=== PATIENT | male | born 1970 | race Caucasian/White ===

== ENCOUNTER → 2020-02-27 | Day surgery (SDC) | payer BC ==
[~2020-02-27] MED LIST: AMLO10TA4 PO; ASPI-889 PO; ATOR40TA59 PO; BUPIVACAINE-EPI 0.25%-1:200000 MPF 30 ML VIAL. ONE; FEXO60TA25 PO; INSU100C4 SQ; INSU100I30 SQ; IPRATRPIUM/ALBUTEROL 0.5/2.5MG 3 ML NEBU. NEB PRN; IV RINGERS SOLUTION,LACTATED 1,000 ML IV SCH; METO25TA4 PO; MIDAZOLAM HCL PF 2 MG/2 ML VIAL. IV ONE; MULT-245 PO; OLME40TA12 PO; OMEP40CA45 PO; ONDANSETRON PF 4 MG/2 ML VIAL. IV PRN; SEMA1PEN SQ
[2020-02-27 11:06] VITALS: BP 150/83
--- NOTE | 2020-02-27 11:10 | PDOC4 ---
Operative Report DATE February 27, 2020 at 1102 Preop Diagnosis Scalp lesions x3 Post-op Diagnosis Same Operation Performed Excision of scalp lesions x3 Patient is a 50-year-old male with complaints of 3 scalp lesions subcutaneous masses that are getting larger. Procedure of excision was explained to the patient detail was benefits were also discussed including bleeding infection alternatives to this procedure also discussed with the patient who seemed to understand and gave both verbal and written consent to have the procedure performed. Patient was taken to the minors room placed in a sitting position the 3 lesions were prepped and draped usual sterile fashion using Betadine solution. Area over each mass was injected with quarter percent Marcaine with epinephrine once this was anesthetized incision was made with 15 blade scalpel over each mass excising the mass sharply all of which appeared to be upper dermoid cysts. Each incision was then closed with a single interrupted subcuticular 4-0 Monocryl stitch and then the skin edges reapproximated with Dermabond. Patient tolerated procedure well was discharged home in stable condition all sponge instrument needle counts listed as correct estimated blood loss 10 mL Surgeon Jim ANESTHESIA PROPOSED: LOCAL IV Fluid 0 Specimen Scalp mass x3 Complications None SIERRA RIOS MD Feb 27, 2020 11:10
--- NOTE | 2020-02-27 11:12 | DISCH ---
DISCHARGE INSTRUCTIONS-DC Condition on Discharge Condition on Discharge: Stable Activity after Discharge Activity Instructions for Disc: No restrictions Other activity instructions: May shower in 24 hours Diet after Discharge Diet after Discharge: Regular Contacting the DRTimmy after DC Call your doctor for: If your condition worsens Follow-Up Follow up with: Dr. Rios in 2 weeks SIERRA RIOS MD Feb 27, 2020 11:12
--- NOTE | 2020-02-29 15:13 | PATHOLOGY ---
[facility] Accession Number: [id number] . 01 Material submitted: . scalp - SCALP LESIONS X3 . 02 Diagnosis: Scalp lesions x3, excision: - Pilar cysts. (JPM:[facility]; 02/29/2020) [facility] 02/29/2020 1142 Local . 02 Comment: There is no evidence of malignancy. (JPM:[facility]; 02/29/2020) . 02 Electronically signed: . Fab Marin MD, Pathologist NPI- [id number] . 01 Gross description: . The specimen is received in formalin, labeled "Robin Barr, scalp lesions x3". Received are multiple segments of white-ryan cystic tissue admixed with pale-ryan friable material measuring 2.8 x 1.5 x 0.6 cm in aggregate dimensions. The cystic tissue is submitted in its entirety in cassette A1. ([facility]; 02/28/2020) QA/[facility] 02/29/2020 1141 Local . 02 Pathologist provided ICD-10: L72.11 . 02 CPT . 976307 Specimen Comment: A courtesy copy of this report has been sent to [phone], [phone] Specimen Comment: [phone] Specimen Comment: Report sent to / DR LAY Performed at: 01 [facility] [address], [place] [id number] MD Skinny Avila MD Phone: [phone] Performed at: 02 [facility] [address], [place] [id number] MD Fab Marin MD Phone: [phone]
== END | disposition home or self-care (01) ==
LOC: SURG 09:34
PROVIDERS: ATTEND Surgery
DX: R22.0 Localized swelling, mass and lump, head (principal); L72.11 Pilar cyst; I48.91 Unspecified atrial fibrillation; E11.9 Type 2 diabetes mellitus without complications; Z79.899 Other long term (current) drug therapy; Z88.6 Allergy status to analgesic agent; Z79.4 Long term (current) use of insulin; Z79.82 Long term (current) use of aspirin; Z98.890 Other specified postprocedural states
CPT/HCPCS: 11423; 88304; J3490